=== PATIENT | male | born 1985 | race Caucasian/White ===

== ENCOUNTER 2023-06-18 04:24 | Emergency (ER) | payer MEDICAID ==
[2023-06-18] MEDS ORDERED: Alum Hydrox/Mag Hydrox/Simeth 15 ML, Lidocaine 2% 15 ML PO ONE ×2 (04:47)
[2023-06-18] MEDS ORDERED: droPERidol 5 MG/2 ML SDV IVPUSH ONE (04:49)
[2023-06-18] MEDS ORDERED: Lactated Ringers 1,000 ML IV ONE (04:49)
[2023-06-18 04:57] LABS: BASOPHILS ABSOLUTE AUTO 0.04 K/uL (0.00-0.10); BASOPHILS PERCENT AUTO 0.3 % (0.1-1.3); HEMATOCRIT 42.3 % (38.4-49.7); HEMOGLOBIN 15.3 g/dL (12.9-16.9); IMMATURE GRAN ABSOLUTE AUTO 0.07 K/uL (0.00-0.23); IMMATURE GRAN PERCENT AUTO 0.6 % (0.0-0.7); LYMPHOCYTES ABSOLUTE AUTO 1.75 K/uL (0.8-3.3); LYMPHOCYTES PERCENT AUTO 15.3 % (11.4-47.7); MEAN CORPUSCULAR HEMOGLOBIN 34.1 pg (31.6-35.5); MEAN CORPUSCULAR HGB CONC 36.2 g/dL (31.6-35.5); MEAN CORPUSCULAR VOLUME 94.2 fL (81.4-99.0); MONOCYTES ABSOLUTE AUTO 0.51 K/uL (0.20-0.90); MONOCYTES PERCENT AUTO 4.4 % (3.3-12.6); NEUTROPHILS PERCENT AUTO 79.4 % (40.0-78.1); PLATELET COUNT,PLT 330 K/uL (130-375); RED BLOOD CELL COUNT 4.49 M/uL (4.14-5.76); WHITE BLOOD CELL COUNT,WBC 11.5 K/uL (3.2-11.0)
[2023-06-18 05:22] LABS: A/G RATIO 1.1 (1.2-2.2); ALANINE AMINOTRANSFERASE,ALT 91 U/L (12-78); ALBUMIN 4.4 g/dL (3.4-5.0); ALKALINE PHOSPHATASE 100 U/L (46-116); ASPARTATE AMNIOTRANSFERASE,AST 86 U/L (15-37); BILIRUBIN TOTAL 0.3 mg/dL (0.2-1.0); BLOOD UREA NITROGEN,BUN 11 mg/dL (7-18); CALCIUM 9.2 mg/dL (8.5-10.1); CARBON DIOXIDE,CO2 26 mmol/L (21-32); CHLORIDE,CL 97 mmol/L (100-108); CREATININE 1.2 mg/dL (0.8-1.3); EST CRCL DRUG DOSING (CG) 71.66 mL/min; ESTIMATED GFR 81 mL/min (>60); GLUCOSE RANDOM 132 mg/dL (74-106); POTASSIUM,K 3.3 mmol/L (3.6-5.2); PROTEIN TOTAL,TP 8.3 g/dL (6.4-8.2); SODIUM,NA 139 mmol/L (140-148)
[2023-06-18 05:23] LABS: ANION GAP 19.3 mmol/L (5.0-14.0)
[2023-06-18] MEDS ORDERED: LORazepam 2 MG/ML SDV IVPUSH ONE (05:30)
== END 2023-06-18 07:19 ==
LOC: JP.ED 04:24
DX: F10.10 Alcohol abuse, uncomplicated (principal); F10.930 Alcohol use, unspecified with withdrawal, uncomplicated
CPT/HCPCS: 36415; 80053; 80307; 83605; 83690; 85025; 96361; 96374; 96375; 99285; A9270; J1790; J2060; J7120